=== PATIENT | female | born 1955 | race Caucasian/White ===

== ENCOUNTER → 2017-09-20 | Outpatient (CLI) | payer OTHER | END | disposition home or self-care (01) | LOC: SUSANVILLE 07:00 | PROVIDERS: ATTEND Internal Medicine Cardiovascular Disease | DX: I25.10 Atherosclerotic heart disease of native coronary artery without angina pectoris (principal) | CPT/HCPCS: 93306 ==

== ENCOUNTER 2020-08-28 17:32 | Inpatient (IN) | payer SELFPAY ==
[~2020-08-28] VITALS: Ht 165.1 cm; Wt 57.1 kg
--- NOTE | 2020-08-28 18:02 | NUR ---
PT TRANSFER FROM [facility] FOR ABNORMAL IMAGING. NEW MASS FOUND ON BRAIN AND LUNGS. PT HAS HAD CO BAINS FOR 2 WEEKS W NAUSEA, USTEADY GAIT. DENIES CP OR SOB. NO COVID LIKE SYMPTOMS. 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 CALL LIGHT IN REACH
--- NOTE | 2020-08-28 18:47 | NUR ---
REPORT FROM SHANNON GARCIA ASSUMING CARE OF PT AT THIS TIME
--- NOTE | 2020-08-28 18:54 | NUR ---
PT UNABLE TO PROVIDE MED LIST STATES THEY ARE AT HOME AND I DON'T KNOW WHAT THEY ARE. MED REC UPDATED
--- NOTE | 2020-08-28 19:34 | NUR ---
DR. LOPEZ AT BEDSIDE FOR ADMIT ASSESSMENT
--- NOTE | 2020-08-28 19:47 | NUR ---
REPORT TO VISHAL GARCIA PT READY FOR TRANSFER TO ROOM [id number]
[2020-08-28] MEDS ORDERED: ACETAMINOPHEN 325 MG TABLET PO PRN (20:00)
[2020-08-28] MEDS ORDERED: DOCUSATE 100 MG CAPSULE PO PRN (20:00)
[2020-08-28] MEDS ORDERED: ENALAPRILAT 1.25 MG/ML, 2ML IVPush PRN (20:00)
[2020-08-28 20:31] VITALS: BP 154/87
[2020-08-28] MEDS: HEPARIN 5,000 UNITS/ML, 1ML SQ SCH (21:06)
[2020-08-28] MEDS: ONDANSETRON 2MG/ML, 2ML IVPush PRN (21:07)
[2020-08-28 21:30] VITALS: BP 135/80
[2020-08-28] MEDS: HYDROcodone/APAP 5/325 TABLET PO PRN (23:55)
[2020-08-29 00:36] VITALS: BP 131/75
[2020-08-29] MEDS: ONDANSETRON 2MG/ML, 2ML IVPush PRN (04:01)
[2020-08-29] MEDS: HEPARIN 5,000 UNITS/ML, 1ML SQ SCH ×3 (04:29→20:04)
[2020-08-29 05:49] LABS: BASOPHILS % (AUTO) 1 % (0-1); EOSINOPHILS % (AUTO) 7 % (1-7); LYMPHOCYTES % (AUTO) 11 % (22-44); MEAN CORPUSCULAR HEMOGLOBIN 27.9 pg (27.0-34.8); MEAN CORPUSCULAR HGB CONC 32.3 g/dL (32.4-35.8); MEAN PLATELET VOLUME 8.2 fL (7.4-10.4); MONOCYTES % (AUTO) 6 % (2-9); NEUTROPHILS % (AUTO) 76 % (42-75); PLATELET COUNT 288 x10^3/uL (130-400); RED BLOOD COUNT 4.64 x10^6/uL (3.82-5.3); RED CELL DISTRIBUTION WIDTH 16.8 % (9.6-15.2)
[2020-08-29 06:09] LABS: CHLORIDE 102 mmol/L (98-107)
[2020-08-29 06:14] LABS: MD NO
[2020-08-29 06:19] LABS: ANION GAP 12 mmol/L (5-15); CALCIUM 9.5 mg/dL (8.5-10.1); CHOL/HDL RATIO 3.5; CHOLESTEROL, TOTAL 148 mg/dL (140-239); CREATININE 0.54 mg/dL (0.55-1.02); HDL CHOL % 28 % (28-40); HDL CHOLESTEROL (DIRECT) 42 mg/dL (40-60); LDL CHOLESTEROL,CALCULATED 67 mg/dL (54-169); LDL/HDL RATIO 1.6 (0.5-3.0); TRIGLYCERIDES 193 mg/dL (50-200); VLDL CHOLESTEROL 39 mg/dL (0-25)
[2020-08-29 07:11] VITALS: BP 145/88
[2020-08-29] MEDS: HYDROcodone/APAP 5/325 TABLET PO PRN (09:20)
[2020-08-29] MEDS ORDERED: GADOTERATE 10 MMOL/20 ML SYR ONE (09:45)
[2020-08-29] MEDS ORDERED: FENTANYL PF 100 MCG/2ML ONE ×2 (12:37)
[2020-08-29] MEDS ORDERED: MIDAZOLAM 1 MG/ML, 5ML ONE ×2 (12:37)
[2020-08-29] MEDS ORDERED: FLUMAZENIL 0.1 MG/1 ML, 5ML ONE (12:37)
[2020-08-29] MEDS ORDERED: NALOXONE 1 MG/ML, 2ML ONE (12:37)
[2020-08-29] MEDS: DEXAMETHASONE 4 MG/ML, 1ML IVPush SCH ×2 (13:41→20:03)
[2020-08-29 14:13] VITALS: BP 118/80
[2020-08-29] MEDS ORDERED: DIPHENHYDRAMINE 50 MG/ML, 1ML IVPush ONE (15:30)
[2020-08-29] MEDS ORDERED: PROCHLORPERAZINE 5 MG/ML, 2ML IVPush ONE (15:30)
[2020-08-29] MEDS ORDERED: KETOROLAC 30 MG/1 ML IVPush ONE (15:30)
[2020-08-29] MEDS ORDERED: OMNIPAQUE 350 MG/ML, 75ML BOTTLE ONE (18:02)
[2020-08-29 19:31] VITALS: BP 112/61
[2020-08-30 01:17] VITALS: BP 109/68
[2020-08-30] MEDS: DEXAMETHASONE 4 MG/ML, 1ML IVPush SCH ×4 (01:36→19:33)
[2020-08-30 05:39] LABS: BASOPHILS % (AUTO) 0 % (0-1); EOSINOPHILS % (AUTO) 0 % (1-7); LYMPHOCYTES % (AUTO) 4 % (22-44); MEAN CORPUSCULAR HEMOGLOBIN 28.1 pg (27.0-34.8); MEAN CORPUSCULAR HGB CONC 32.8 g/dL (32.4-35.8); MEAN PLATELET VOLUME 7.9 fL (7.4-10.4); MONOCYTES % (AUTO) 1 % (2-9); NEUTROPHILS % (AUTO) 95 % (42-75); PLATELET COUNT 297 x10^3/uL (130-400); RED BLOOD COUNT 4.53 x10^6/uL (3.82-5.3); RED CELL DISTRIBUTION WIDTH 16.5 % (9.6-15.2)
[2020-08-30] MEDS: HEPARIN 5,000 UNITS/ML, 1ML SQ SCH ×3 (05:45→21:23)
[2020-08-30 05:57] LABS: ALANINE AMINOTRANSFERASE 20 U/L (12-78); ALBUMIN 3.1 g/dL (3.4-5.0); ANION GAP 6 mmol/L (5-15); CALCIUM 9.2 mg/dL (8.5-10.1); CHLORIDE 100 mmol/L (98-107); CREATININE 0.56 mg/dL (0.55-1.02)
[2020-08-30 05:59] LABS: ALKALINE PHOSPHATASE 195 U/L (45-117); BILIRUBIN,TOTAL 0.5 mg/dL (0.2-1.0); TOTAL PROTEIN 7.4 g/dL (6.4-8.2)
[2020-08-30 06:11] LABS: MD NO
[2020-08-30 09:15] VITALS: BP 115/70
[2020-08-30 12:00] VITALS: BP 110/68
[2020-08-30 19:02] VITALS: BP 114/72
[2020-08-31 01:56] VITALS: BP 129/80
[2020-08-31] MEDS: DEXAMETHASONE 4 MG/ML, 1ML IVPush SCH ×4 (02:17→21:16)
[2020-08-31 05:01] LABS: BASOPHILS % (AUTO) 0 % (0-1); EOSINOPHILS % (AUTO) 0 % (1-7); LYMPHOCYTES % (AUTO) 3 % (22-44); MEAN CORPUSCULAR HEMOGLOBIN 27.7 pg (27.0-34.8); MEAN CORPUSCULAR HGB CONC 32.3 g/dL (32.4-35.8); MEAN PLATELET VOLUME 8.3 fL (7.4-10.4); MONOCYTES % (AUTO) 2 % (2-9); NEUTROPHILS % (AUTO) 94 % (42-75); PLATELET COUNT 318 x10^3/uL (130-400); RED BLOOD COUNT 4.37 x10^6/uL (3.82-5.3); RED CELL DISTRIBUTION WIDTH 16.7 % (9.6-15.2)
[2020-08-31] MEDS: HEPARIN 5,000 UNITS/ML, 1ML SQ SCH ×3 (05:09→21:19)
[2020-08-31 05:10] LABS: ANION GAP 3 mmol/L (5-15); CALCIUM 9.4 mg/dL (8.5-10.1); CHLORIDE 102 mmol/L (98-107); CREATININE 0.52 mg/dL (0.55-1.02)
[2020-08-31 05:46] LABS: MD SCAN
[2020-08-31 07:39] VITALS: BP 107/67
[2020-08-31] MEDS ORDERED: SODIUM CHLORIDE 0.9% 1,000 ML IV SCH (08:30)
[2020-08-31 12:42] VITALS: BP 113/78
[2020-08-31 19:32] VITALS: BP 122/79
[2020-09-01] MEDS: TEMAZEPAM 15 MG CAPSULE PO PRN ×2 (00:35→21:38)
[2020-09-01] MEDS: DEXAMETHASONE 4 MG/ML, 1ML IVPush SCH ×4 (02:52→20:29)
[2020-09-01 03:06] VITALS: BP 104/66
[2020-09-01] MEDS: HEPARIN 5,000 UNITS/ML, 1ML SQ SCH ×3 (05:31→21:40)
[2020-09-01 05:44] LABS: BASOPHILS % (AUTO) 0 % (0-1); EOSINOPHILS % (AUTO) 0 % (1-7); LYMPHOCYTES % (AUTO) 4 % (22-44); MEAN CORPUSCULAR HEMOGLOBIN 28.1 pg (27.0-34.8); MEAN CORPUSCULAR HGB CONC 32.8 g/dL (32.4-35.8); MEAN PLATELET VOLUME 8.4 fL (7.4-10.4); MONOCYTES % (AUTO) 3 % (2-9); NEUTROPHILS % (AUTO) 93 % (42-75); PLATELET COUNT 263 x10^3/uL (130-400); RED BLOOD COUNT 3.84 x10^6/uL (3.82-5.3); RED CELL DISTRIBUTION WIDTH 16.5 % (9.6-15.2)
[2020-09-01 06:00] LABS: ANION GAP 4 mmol/L (5-15); CALCIUM 8.6 mg/dL (8.5-10.1); CHLORIDE 104 mmol/L (98-107)
[2020-09-01 06:01] LABS: CREATININE 0.57 mg/dL (0.55-1.02)
[2020-09-01 06:25] LABS: MD SCAN
[2020-09-01 08:00] VITALS: BP 98/66
[2020-09-01 13:52] VITALS: BP 104/66
[2020-09-01 19:01] VITALS: BP 129/78
[2020-09-02 02:26] VITALS: BP 99/64
[2020-09-02] MEDS: DEXAMETHASONE 4 MG/ML, 1ML IVPush SCH ×3 (02:34→14:02)
[2020-09-02] MEDS: HEPARIN 5,000 UNITS/ML, 1ML SQ SCH ×2 (05:33→14:02)
[2020-09-02 07:22] VITALS: BP 109/67
[2020-09-02 14:13] VITALS: BP 135/77
[2020-09-02] MEDS ORDERED: DEXA4TAB66 PO ×2 (16:04→16:28)
== END 2020-09-02 18:34 | disposition home or self-care (01) | DRG 180 ==
LOC: ED 19:56 → EDIP 20:08 → 4NE 20:26 → 4NW 08-30 15:07
PROVIDERS: ADMIT Family Medicine; ATTEND Family Medicine
PROC: 0BBD3ZX Excision of Right Middle Lung Lobe, Percutaneous Approach, Diagnostic (ICD-10-PCS; principal; 2020-08-29)
DX: C34.90 Malignant neoplasm of unspecified part of unspecified bronchus or lung (principal); G93.6 Cerebral edema; C79.31 Secondary malignant neoplasm of brain; I31.3 Pericardial effusion (noninflammatory); J98.19 Other pulmonary collapse; I25.10 Atherosclerotic heart disease of native coronary artery without angina pectoris; F32.9 Major depressive disorder, single episode, unspecified; I10 Essential (primary) hypertension; Z91.19 Patient's noncompliance with other medical treatment and regimen; I25.2 Old myocardial infarction; Z95.5 Presence of coronary angioplasty implant and graft; Z79.899 Other long term (current) drug therapy; Z87.891 Personal history of nicotine dependence
CPT/HCPCS: 32405; 36415; 70553; 71045; 74177; 77012; 80048; 80053; 80061; 85025; 88305; 88341; 88342; 99156; G0378; J1100; J1644; J1885; J2250; J2405; J3010; Q9967; A9575; J0780; J1200; J2310; J7030

== ENCOUNTER 2020-10-03 07:28 | Outpatient (CLI) | payer SELFPAY ==
[~2020-10-03 07:28] MED LIST: DEXA4TAB66 PO
== END 2020-10-03 23:59 | disposition home or self-care (01) ==
LOC: ROC 07:28
PROVIDERS: ATTEND Radiology Radiation Oncology
DX: C34.2 Malignant neoplasm of middle lobe, bronchus or lung (principal); C79.31 Secondary malignant neoplasm of brain; I25.10 Atherosclerotic heart disease of native coronary artery without angina pectoris; I10 Essential (primary) hypertension; I25.2 Old myocardial infarction; F32.9 Major depressive disorder, single episode, unspecified; Z79.899 Other long term (current) drug therapy; Z87.891 Personal history of nicotine dependence; Z95.5 Presence of coronary angioplasty implant and graft
CPT/HCPCS: 99212; G0463